=== PATIENT | female | born 1990 | race Two or more races ===

== ENCOUNTER 2020-04-24 02:42 | Emergency (ER) | payer MEDICAID ==
[~2020-04-24] VITALS: Ht 170.2 cm; Wt 56.8 kg
[2020-04-24] MEDS ORDERED: ondansetron/PF 4mg/2ml inj IV ONE (03:10)
[2020-04-24] MEDS ORDERED: normal saline 1000ML IV soln IVB ONE (03:10)
[2020-04-24 03:36] LABS: BASOPHILS # (AUTO) 0.1 X10'3 (0-0.2); BASOPHILS % (AUTO) 1.2 % (0-1); EOSINOPHILS # (AUTO) 0.2 X10'3 (0-0.9); EOSINOPHILS % (AUTO) 2.4 % (0-6); HEMATOCRIT 39.4 % (35.0-45.0); HEMOGLOBIN 13.2 g/dl (12.0-16.0); LYMPHOCYTES # (AUTO) 3.1 X10'3 (1.1-4.8); LYMPHOCYTES % (AUTO) 44.3 % (21-51); MEAN CORPUSCULAR HGB CONC 33.4 g/dL (33.0-36.5); MEAN CORPUSCULAR VOLUME 92.7 FL (78-98); MEAN PLATELET VOLUME 8.3 FL (7.4-10.4); MONOCYTES # (AUTO) 0.5 X10'3 (0-0.9); MONOCYTES % (AUTO) 6.9 % (2-12); NEUTROPHILS # (AUTO) 3.1 X10'3 (1.8-7.7); NEUTROPHILS % (AUTO) 45.2 % (42-75); PLATELET COUNT 344 X10'3 (140-440); RED BLOOD COUNT 4.25 X10'6 (4.20-5.60); RED CELL DISTRIBUTION WIDTH 12.5 % (11.5-14.5); WHITE BLOOD COUNT 6.9 X10'3 (4.5-11.0)
[2020-04-24 03:54] LABS: ALANINE AMINOTRANSFERASE 26 U/L (12-78); ALBUMIN 4.5 G/DL (3.4-5.0); ALBUMIN/GLOBULIN RATIO 1.2 (1.1-1.5); ALKALINE PHOSPHATASE 47 IU/L (46-116); ANION GAP 14 (8-16); ASPARTATE AMINO TRANSFERASE 28 U/L (10-37); BILIRUBIN,TOTAL 0.3 MG/DL (0.1-1.0); BLOOD UREA NITROGEN 8 MG/DL (7-18); BUN/CREATININE RATIO 11.4 (6.6-38.0); CHLORIDE 105 MMOL/L (99-107); GLUCOSE 106 MG/DL (70-104); POTASSIUM 3.8 MMOL/L (3.5-5.1); SODIUM 142 MMOL/L (135-145); TOTAL CARBON DIOXIDE 23.1 MMOL/L (24-32); TOTAL PROTEIN 8.3 G/DL (6.4-8.2); eGFR > 90 ML/MIN
[2020-04-24 04:05] LABS: ETHANOL 0.239 GM/DL (0.0-0.010)
[2020-04-24] MEDS ORDERED: DIAZ10TA4 PO (04:26)
[2020-04-24] MEDS ORDERED: AMPH20CA3 PO (04:26)
[2020-04-24] MEDS ORDERED: CLON-527 PO (04:26)
[2020-04-24] MEDS ORDERED: ESCI20TA45 PO (04:26)
[2020-04-24] MEDS: clonazePAM 1mg tablet PO PRN ×2 (05:43→09:12)
[2020-04-24 05:49] VITALS: BP 92/57
[2020-04-24 06:47] LABS: URINE HCG NEGATIVE (NEG)
[2020-04-24 06:48] LABS: CLARITY,URINE CLEAR (Clear); COLOR,URINE YELLOW (Yellow); GLUCOSE, URINE NEGATIVE (Neg); KETONES,URINE NEGATIVE (Neg); LEUKOCYTE ESTERASE ,URINE NEGATIVE (Neg); NITRITES, URINE NEGATIVE (Neg); OCCULT BLOOD,URINE NEGATIVE (Neg); PH,URINE 5.5 (4.8-8.0); PROTEIN,URINE NEGATIVE (Neg); UROBILINOGEN,URINE 0.2 E.U/dL (0.2-1.0)
[2020-04-24 06:52] LABS: URINE AMPHETAMINE SCREEN POSITIVE (Neg); URINE BARBITUATE SCREEN NEGATIVE (Neg); URINE BENZODIAZEPINES SCREEN POSITIVE (Neg); URINE CANNABINOID SCREEN NEGATIVE (Neg); URINE COCAINE SCREEN NEGATIVE (Neg); URINE METHADONE SCREEN NEGATIVE (Neg); URINE OPIATE SCREEN NEGATIVE (Neg); URINE PHENCYCLIDINE SCREEN NEGATIVE (Neg)
[2020-04-24 06:53] LABS: UA COLLECTION TYPE VOIDED
[2020-04-24] MEDS ORDERED: ESCITALOPRAM OXALATE 5 MG TABLET PO SCH (08:00)
[2020-04-24] MEDS ORDERED: diazepam 5mg tablet PO SCH (08:00)
[2020-04-24] MEDS: dextroamphetamine/amphetamine ER 20 MG CAP.SR.24H PO SCH ×2 (08:00→09:13)
--- NOTE | 2020-04-24 08:33 | NUR ---
Pt escorted by TABITHA Do from [facility] to of. Ernestina aware pt's am meds due & not given as pt was asleep.
--- NOTE | 2020-04-24 09:25 | NUR ---
pt is resting in her room. eating breakfast. no concerns at this time. packet sent to [place] office
--- NOTE | 2020-04-24 11:05 | NUR ---
pt is sleeping no concerns at this time
[2020-04-24] MEDS ORDERED: gabapentin 400mg capsule PO SCH (11:55)
[2020-04-24] MEDS ORDERED: acetaminophen 325mg tablet PO ONE (11:55)
--- NOTE | 2020-04-24 12:00 | NUR ---
pt is resting. no concerns at this time
--- NOTE | 2020-04-24 13:00 | NUR ---
pt is resting. no concerns at this time
--- NOTE | 2020-04-24 14:14 | NUR ---
pt is resting. no concerns at this time
== END 2020-04-24 15:57 | disposition home or self-care (01) ==
LOC: ER 02:43
DX: F10.129 Alcohol abuse with intoxication, unspecified (principal); R45.851 Suicidal ideations; Y90.9 Presence of alcohol in blood, level not specified
CPT/HCPCS: 36415; 80053; 80305; 80320; 81003; 81025; 84443; 85025; 96361; 96374; 99285; J2405; J7030; 99284

== ENCOUNTER 2021-02-19 16:39 | Emergency (ER) | payer MEDICAID ==
[~2021-02-19] VITALS: Ht 160 cm; Wt 61.4 kg
[~2021-02-19 16:39] MED LIST: AMPH20CA3 PO; CLON-527 PO; DIAZ10TA4 PO; ESCI20TA39 PO
[2021-02-19 17:17] VITALS: BP 102/63
== END 2021-02-19 20:17 | disposition home or self-care (01) ==
LOC: ER 16:39
DX: R05 Cough (principal); Z20.822 Contact with and (suspected) exposure to COVID-19; R50.9 Fever, unspecified; R52 Pain, unspecified; Z72.89 Other problems related to lifestyle; Z79.899 Other long term (current) drug therapy
CPT/HCPCS: 87635; 99283; C9803

== ENCOUNTER 2023-01-01 12:10 | Emergency (ER) | payer MEDICAID ==
[~2023-01-01] VITALS: Ht 160 cm; Wt 63.6 kg
[2023-01-01 12:16] VITALS: BP 111/81
--- NOTE | 2023-01-01 12:44 | NUR ---
PT WHEELED TO ROOM IN FT VIA WC BY EMT. PT ACTIVELY CRYING VERY LOUDLY STATING TO EMT YOU LOOK LIKE MY . UPON AX PT SMELLS OF ETOH PRESENTS W/ BLOODSHOT EYS, INCREASED EMOTION AND SLURRED SPEACH. NORMALLY AMBULATES W/O ANY AIDES. POOR HISTORIAN AT THIS TIME. PT STATES SHE HAD 1 WHITE CLAW AND 1 CURIEL BEER W/ PRESCRIBED MEDICATIONS ZOLOFT, XANAX, GABAPENTIN. PT CIRCLING HER STORY OVER AND OVER DESPITE REDIRECTION ATTEMPTS. PT STATES SHE ONLY DRANK COFFEE BEFORE COMING TO ED. PT ALSO STATES SHE HAS NO PMD AND GETS HER MEDS FROM [facility] IN [place], [place].
--- NOTE | 2023-01-01 14:57 | NUR ---
LATE ENTRY: PT ALSO STATED SHE TOOK RX SEROQUEL.
[2023-01-01 15:36] LABS: BASOPHILS # (AUTO) 0.1 X10'3 (0-0.2); BASOPHILS % (AUTO) 1.1 % (0-1); EOSINOPHILS # (AUTO) 0.2 X10'3 (0-0.9); EOSINOPHILS % (AUTO) 2.7 % (0-6); HEMATOCRIT 42.6 % (35.0-45.0); HEMOGLOBIN 14.3 g/dl (12.0-16.0); LYMPHOCYTES # (AUTO) 3.1 X10'3 (1.1-4.8); LYMPHOCYTES % (AUTO) 42.3 % (21-51); MEAN CORPUSCULAR HEMOGLOBIN 30.4 PG (27.0-31.0); MEAN CORPUSCULAR HGB CONC 33.5 g/dL (33.0-36.5); MEAN CORPUSCULAR VOLUME 90.8 FL (78-98); MEAN PLATELET VOLUME 8.3 FL (7.4-10.4); MONOCYTES # (AUTO) 0.7 X10'3 (0-0.9); MONOCYTES % (AUTO) 10.1 % (2-12); NEUTROPHILS # (AUTO) 3.2 X10'3 (1.8-7.7); NEUTROPHILS % (AUTO) 43.8 % (42-75); PLATELET COUNT 375 X10'3 (140-440); RED BLOOD COUNT 4.69 X10'6 (4.20-5.60); WHITE BLOOD COUNT 7.3 X10'3 (4.5-11.0)
[2023-01-01 15:57] LABS: ALANINE AMINOTRANSFERASE 18 U/L (12-78); ALBUMIN 4.3 G/DL (3.4-5.0); ALBUMIN/GLOBULIN RATIO 1.3 (1.1-1.5); ALKALINE PHOSPHATASE 50 IU/L (46-116); ANION GAP 12 (8-16); ASPARTATE AMINO TRANSFERASE 14 U/L (10-37); BILIRUBIN,TOTAL 0.9 MG/DL (0.1-1.0); BLOOD UREA NITROGEN 13 MG/DL (7-18); CALCIUM 9.8 MG/DL (8.5-10.1); CHLORIDE 104 MMOL/L (99-107); CREATININE 0.81 MG/DL (0.40-0.90); GLUCOSE 99 MG/DL (70-104); POTASSIUM 3.9 MMOL/L (3.5-5.1); SODIUM 140 MMOL/L (135-145); TOTAL CARBON DIOXIDE 24.4 MMOL/L (24-32); TOTAL PROTEIN 7.5 G/DL (6.4-8.2); eGFR 81 ML/MIN
[2023-01-01 16:07] LABS: URINE HCG NEGATIVE (NEG)
[2023-01-01 16:13] LABS: CLARITY,URINE CLOUDY (Clear); COLOR,URINE YELLOW (Yellow); GLUCOSE, URINE NEGATIVE (Neg); KETONES,URINE TRACE mg/dl (Neg); LEUKOCYTE ESTERASE ,URINE NEGATIVE (Neg); NITRITES, URINE NEGATIVE (Neg); OCCULT BLOOD,URINE MODERATE (Neg); PH,URINE 6.5 (4.8-8.0); PROTEIN,URINE NEGATIVE (Neg); UROBILINOGEN,URINE 0.2 E.U/dL (0.2-1.0)
[2023-01-01 16:13] LABS: ETHANOL < 0.010 GM/DL (0.0-0.010)
[2023-01-01 16:25] LABS: UA COLLECTION TYPE CLN CATCH MIDSTREAM
[2023-01-01 16:28] LABS: URINE AMPHETAMINE SCREEN POSITIVE (Neg); URINE BARBITUATE SCREEN NEGATIVE (Neg); URINE BENZODIAZEPINES SCREEN POSITIVE (Neg); URINE CANNABINOID SCREEN NEGATIVE (Neg); URINE COCAINE SCREEN NEGATIVE (Neg); URINE METHADONE SCREEN NEGATIVE (Neg); URINE OPIATE SCREEN NEGATIVE (Neg); URINE PHENCYCLIDINE SCREEN NEGATIVE (Neg)
[2023-01-01 16:49] LABS: MUCUS STRANDS MODERATE /LPF (Neg)
[2023-01-01 16:52] LABS: BACTERIA,URINE FEW /HPF (Neg); RBC,URINE 0-2 /HPF (0-2); WBC,URINE 0-4 /HPF (0-4)
[2023-01-01 16:53] LABS: SQUAMOUS EPITHELIAL CELL,UR MANY /LPF (FEW)
[2023-01-01 16:57] LABS: TRANSITIONAL EPI CELLS,URINE FEW /HPF
== END 2023-01-01 16:54 | disposition home or self-care (01) ==
LOC: ER 12:12
DX: R20.0 Anesthesia of skin (principal); F17.200 Nicotine dependence, unspecified, uncomplicated; F31.9 Bipolar disorder, unspecified; Z79.899 Other long term (current) drug therapy
CPT/HCPCS: 36415; 70450; 80053; 80305; 80320; 81001; 81025; 85025; 99284